=== PATIENT | male | born 2000 | race African-American/Black ===

== ENCOUNTER 2022-12-28 19:53 | Emergency (ER) | payer OTHER, SELFPAY ==
[2022-12-28 20:07] VITALS: BP 114/65; PULSE 81; RESP 14; TEMP 36.7; O2SAT 100
[2022-12-28 23:35] VITALS: BP 103/65; PULSE 96; RESP 16; O2SAT 100
--- NOTE | 2022-12-29 00:06 | ED.EAR ---
HPI - Ear Problem General Chief complaint: Ear Stated complaint: ear pain Time Seen by Provider: 12/28/22 23:47 History of Present Illness HPI Narrative: 22-year-old male here for evaluation of left ear fullness x1 week. States he has decreased hearing. He does use Q-tips. No pain, fevers, nausea, vomiting, dizziness. Related Data Allergies Allergy/AdvReac Type Severity Reaction Status Date / Time No Known Allergies Allergy Unverified 07/13/11 11:11 Review of Systems Review of Systems: Gen.: Denies fevers or chills Eyes: Denies eye pain or visual change ENT: Reports ear fullness Respiratory: Denies shortness of breath or cough CV: Denies chest pain or palpitations GI: Denies abdominal pain nausea, emesis or diarrhea denies burning, urgency, frequency or hematuria Musculoskeletal: Denies back pain or muscle pain Neuro: Denies numbness, tingling, weakness or focal weakness Skin: Denies rash Except as documented, all other systems reviewed and negative Exam Narrative: Gen: Alert, oriented, no acute distress Eyes: EOMI, no icterus ENT: Cerumen impaction on the left Pulm: Respirations even and unlabored, symmetric thorax expansion, no audible stridor or visible cyanosis CV: Regular rate per telemetry GI: No distension, no voluntary/involuntary guarding Neuro: AOx4, moves all extremities without apparent difficulty or weakness, follows commands Skin: No jaundice, no visible bruising, rashes, lesions or wounds on exposed skin Psych: Normal mood/affect, insight/judgement good, adequate fund of knowledge, recent/remote memory intact Course Vital Signs Vital signs: Vital Signs Temperature 98.1 F 12/28/22 20:07 Pulse Rate 81 12/28/22 20:07 Respiratory Rate 14 12/28/22 20:07 Blood Pressure 114/65 12/28/22 20:07 Pulse Oximetry 100 12/28/22 20:07 Oxygen Delivery Room Air 12/28/22 20:07 Temperature 98.1 F 12/28/22 20:07 Pulse Rate 96 12/28/22 23:35 Respiratory Rate 16 12/28/22 23:35 Blood Pressure 103/65 12/28/22 23:35 Pulse Oximetry 100 12/28/22 23:35 Oxygen Delivery Room Air 12/28/22 20:07 Procedures Ear Wax Removal Right Ear: Ear Wax Removal Date: 12/29/22 Ear Wax Removal Time: 01:10 Cerumenolytic Used: other Results: Re-examined: cerumen removed completely TM Examination: TM(s) intact, normal appearance Ear Canal Exam: atraumatic Patient Tolerated Procedure: well Complications: no problems Technique: ear canal irrigated Medical Decision Making MDM Narrative Medical decision making narrative: 20-year-old male with left ear fullness with evidence of cerumen impaction on exam that was irrigated in the ED. Patient had relief of fullness sensation afterwards. Advised cessation from Q-tips and PMD follow-up. TM is intact and without evidence of infection. Vital Signs Vital Signs: Vital Signs Temperature 98.1 F 12/28/22 20:07 Pulse Rate 81 12/28/22 20:07 Respiratory Rate 14 12/28/22 20:07 Blood Pressure 114/65 12/28/22 20:07 Pulse Oximetry 100 12/28/22 20:07 Oxygen Delivery Room Air 12/28/22 20:07 Temperature 98.1 F 12/28/22 20:07 Pulse Rate 96 12/28/22 23:35 Respiratory Rate 16 12/28/22 23:35 Blood Pressure 103/65 12/28/22 23:35 Pulse Oximetry 100 12/28/22 23:35 Oxygen Delivery Room Air 12/28/22 20:07 Discharge Plan Discharge Clinical Impression: Cerumen impaction Patient Disposition: Home, Self-Care Condition: Stable Instructions: Antibiotic Form, Carbamide Peroxide (Into the ear) Additional Instructions: You had a large ball of earwax removed from your ear today which is likely causing your symptoms. Please avoid using Q-tips in the future. Follow-up with your primary doctor next week. Follow-up/Referrals: UNKNOWN,DOCTOR [Non-Staff] -
== END 2022-12-29 01:54 | disposition home or self-care (01) ==
PROVIDERS: Emergency Provider Physician Assistant
DX: H61.22 Impacted cerumen, left ear (principal)
CPT/HCPCS: 69209; 99283; A9270

== ENCOUNTER 2023-04-10 03:25 | Emergency (ER) | payer OTHER, SELFPAY ==
--- NOTE | ~2023-04-10 | XR_ITS ---
EXAMINATION: XR chest 2V DATE: 04/10/2023 04:11 INDICATION: Chest pain. TECHNIQUE: Frontal and lateral views of the chest were obtained. COMPARISON: None. FINDINGS: There is no pneumonia, pleural effusion, or pneumothorax. The heart size is normal. IMPRESSION: 1. No acute cardiopulmonary disease. Reviewed, dictated and finalized at location A.
[2023-04-10 03:27] VITALS: BP 101/83; PULSE 78; RESP 13; TEMP 36.6; O2SAT 100
--- NOTE | 2023-04-10 03:31 | ECG_ITS ---
Measurements Intervals Thayer Rate: 75 P: 61 CA: 163 QRS: 87 QRSD: 94 T: 61 QT: 365 QTc: 410 Interpretive Statements SINUS RHYTHM WITH SINUS ARRHYTHMIA BASELINE ARTIFACT- I, II, III, AVR, AVL, AVF, V1 NORMAL ECG NO PREVIOUS ECG AVAILABLE FOR COMPARISON Electronically Signed On 04-10-2023 6:34:36 CDT by Deodnre Shin D.O.
[2023-04-10 03:35] VITALS: PULSE 76
[2023-04-10 03:37] VITALS: BP 126/81; PULSE 89; RESP 12; O2SAT 96
[2023-04-10 03:41] VITALS: O2SAT 98
[2023-04-10 03:53] LABS: Basophils Absolute Auto 0.1 K/mm3 (0.0-0.1); Basophils Percent Auto 1.7 % (0.2-1.2); Eosinophils Absolute Auto 0.6 K/mm3 (0-0.3); Hemoglobin 14.8 g/dL (14.0-18.0); Lymphocytes Absolute Auto 2.23 K/mm3 (0.9-3.2); Mean Corpuscular HGB Conc 34.4 g/dl (32-36); Mean Corpuscular Hemoglobin 32.5 pg (26-34); Mean Corpuscular Volume 94.5 fl (80-100); Mean Platelet Volume 10.4 fl (7.4-10.4); Monocytes Absolute Auto 0.3 K/mm3 (0.1-0.6); Neutrophils Absolute Auto 0.9 K/mm3 (1.3-6.7); Neutrophils Percent Auto 22.3 % (45.5-73.1); Platelet Count Result 220 k/mm3 (150-375); Red Blood Count 4.55 M/mm3 (4.6-6.20); Red Cell Distribution Width 10.9 % (11.5-14.5); White Blood Count 4.1 K/mm3 (4.5-10.0)
--- NOTE | 2023-04-10 04:00 | ED.GENADULT ---
HPI - General Adult General Chief complaint: Chest Pain Stated complaint: Really bad case of acid reflux Time Seen by Provider: 04/10/23 03:39 History of Present Illness HPI narrative: Patient 22-year-old gentleman who presents emergency department with chief complaint of acid reflux. Patient reports this evening he had an episode of feeling indigestion and then reports that he had a bit of tightness in his chest and felt as though it was hard to take a good deep breath. Patient reports that the symptoms or not improved by anything reports that they are not worsened by anything. Patient reports he has had an episode similar to this in the past but usually goes away on its own. Patient denies fever reports no prior history, reports no family history for early cardiac , pulmonary embolism, Marfan's or Fatemeh-Danlos Related Data Allergies Allergy/AdvReac Type Severity Reaction Status Date / Time No Known Allergies Allergy Verified 04/10/23 03:38 Review of Systems Review of Systems: A 10 system review of systems was completed on the patient and is negative except for what is stated in the HPI. Nursing and ancillary documentation was reviewed. Exam Narrative: GENERAL: Well-appearing, well-nourished, and in no acute distress. HEAD: Normocephalic, atraumatic. EYES: PERRLA and EOMI. ENT: Nares clear, no rhinorrhea or epistaxis. Mucous membranes moist. NECK: Supple. CHEST: Clear to auscultation. No respiratory distress. HEART: Regular rate and rhythm. No murmur heard. Normal peripheral pulses. ABDOMEN: Soft, nontender, nondistended, normal active bowel sounds. EXTREMITIES: Normal range of motion. No edema. SKIN: Warm, dry, no rash. NEURO: No focal deficits. Alert and oriented x3. PSYCH: Normal mood and affect. Course Vital Signs Vital signs: Vital Signs Temperature 36.6 C 04/10/23 03:27 Pulse Rate 78 04/10/23 03:27 Respiratory Rate 13 04/10/23 03:27 Blood Pressure 101/83 04/10/23 03:27 Pulse Oximetry 100 04/10/23 03:27 Oxygen Delivery Room Air 04/10/23 03:27 Temperature 36.6 C 04/10/23 03:27 Pulse Rate 89 04/10/23 03:37 Respiratory Rate 12 04/10/23 03:37 Blood Pressure 126/81 04/10/23 03:37 Pulse Oximetry 98 04/10/23 03:41 Oxygen Delivery Room Air 04/10/23 03:41 Medical Decision Making MDM Narrative Medical decision making narrative: Differential diagnosis of atypical chest pain, reflux, gastritis, ACS, EKG was obtained which showed no evidence of acute ST elevations Laboratory studies were obtained which showed normal CBC normal CMP lipase was negative and troponin was negative Chest x-ray showed no evidence of pneumothorax Patient symptoms were improved with a GI cocktail Vital Signs Vital Signs: Vital Signs Temperature 36.6 C 04/10/23 03:27 Pulse Rate 78 04/10/23 03:27 Respiratory Rate 13 04/10/23 03:27 Blood Pressure 101/83 04/10/23 03:27 Pulse Oximetry 100 04/10/23 03:27 Oxygen Delivery Room Air 04/10/23 03:27 Temperature 36.6 C 04/10/23 03:27 Pulse Rate 89 04/10/23 03:37 Respiratory Rate 12 04/10/23 03:37 Blood Pressure 126/81 04/10/23 03:37 Pulse Oximetry 98 04/10/23 03:41 Oxygen Delivery Room Air 04/10/23 03:41 Lab Data 04/10/23 03:46 04/10/23 03:46 Labs: Lab Results 04/10/23 Range/Units 03:46 WBC 4.1 L (4.5-10.0) K/mm3 RBC 4.55 L (4.6-6.20) M/mm3 Hgb 14.8 (14.0-18.0) g/dL Hct 43.0 (42.0-52.0) % MCV 94.5 (80-100) fl MCH 32.5 (26-34) pg MCHC 34.4 (32-36) g/dl RDW 10.9 L (11.5-14.5) % Plt Count 220 (150-375) k/mm3 MPV 10.4 (7.4-10.4) fl Immature Gran % (Auto) 0.0 (0-0.5) % Neut % (Auto) 22.3 L (45.5-73.1) % Lymph % (Auto) 54.0 H (18.3-44.2) % [place] % (Auto) 8.0 (2.6-8.5) % Eos % (Auto) 14.0 H (0-4.4) % Baso % (Auto) 1.7 H (0.2-1.2) % Lymph # (Auto) 2.23 (0.9-3.2) K/mm3 [place] # (Auto) 0.3
[2023-04-10] MEDS: BELLADONNA ALK/PHENOB ELIX 10 ML, MAG HYDROX/ALUMINUM HYD/SIMETH 30 ML, LIDOCAINE HCL 2... PO (04:02)
[2023-04-10 04:04] LABS: Alanine Aminotransferase 20 U/L (6-50); Albumin Level 4.8 g/dL (3.5-5.1); Alkaline Phosphatase 76 U/L (38-126); Anion Gap 6 mmol/L (8-16); Aspartate Amino Transferase 28 U/L (17-59); Bilirubin,Total 0.7 mg/dL (0.2-1.3); Blood Urea Nitrogen 10 mg/dL (9-20); Calcium 9.3 mg/dL (8.4-10.2); Carbon Dioxide 34 mmol/L (22-30); Chloride 102 mmol/L (98-107); Estimated CRCL calculation 117 ml/min; Estimated Glomerular Filt Rate > 60; Glucose 68 mg/dL (65-110); Lipase 48 U/L (23-300); Potassium 3.5 mmol/L (3.4-5.0); Sodium 142 mmol/L (137-145)
[2023-04-10 04:05] LABS: Prothrombin Time 13.5 Seconds (11.1-14.7)
[2023-04-10 04:16] LABS: Troponin I < 0.012 ng/mL (0.000-0.034)
[2023-04-10 04:51] VITALS: BP 109/75; PULSE 65; O2SAT 100
[2023-04-10 05:00] VITALS: BP 109/75; PULSE 65; O2SAT 100
== END 2023-04-10 04:59 | disposition home or self-care (01) ==
PROVIDERS: Emergency Provider Emergency Medicine
DX: K21.9 Gastro-esophageal reflux disease without esophagitis (principal)
CPT/HCPCS: 36415; 71046; 80053; 83690; 84484; 85025; 85610; 85730; 93005; 99284; A9270